=== PATIENT | male | born 1990 | race African-American/Black ===

== ENCOUNTER 2017-01-10 19:34 | Emergency (ER) | payer SELFPAY ==
[~2017-01-10] VITALS: Ht 185.4 cm; Wt 83.9 kg
--- NOTE | 2017-01-10 19:42 | NUR ---
"LT LEG PAIN X1.5 WEEKS AFTER LEG WORKOUT A WEEK BEFORE; ALSO HAVE A LUMP WITH PUS AND IT'S GETTING WORSE". AWAITING MD ORDER
--- NOTE | 2017-01-10 20:02 | NUR ---
DELICATESSEN DEPARTMENT MANAGER AT BEDSIDE
--- NOTE | 2017-01-10 21:55 | NUR ---
Patient discharged to home in stable condition. Written and verbal after care instructions given. Patient verbalizes understanding of instruction.
[2017-01-10 21:56] VITALS: BP 140/71
== END 2017-01-10 21:56 | disposition home or self-care (01) ==
LOC: ER 19:35
DX: L03.116 Cellulitis of left lower limb (principal)
CPT/HCPCS: 73552; 76882; 99284; A4606; Z7610; 73550-TC